=== PATIENT | female | born 1950 | race Caucasian/White ===

== ENCOUNTER 2016-12-20 17:50 | Inpatient (IN) | payer OTHER ==
[~2016-12-20] VITALS: Ht 168.9 cm; Wt 91.0 kg
[2016-12-20 18:22] LABS: EOSINOPHIL (%) 0.5 % (0-5); EOSINOPHIL COUNT 0.1 K/uL (0-0.3); HEMATOCRIT 41.4 % (36.0-46.0); IMMATURE GRANULOCYTE (%) 0.4 % (0.0-0.7); IMMATURE GRANULOCYTE COUNT 0.1 K/uL; INSTRUMENT ABS NEUTROPHIL CT 11.3 K/uL; LYMPHOCYTE COUNT 1.5 K/uL (1.0-2.8); MCH 26.8 PG (29.0-34.0); MCHC 33.1 G/DL (30.0-36.0); MEAN PLAT.VOLUME 11.1 uM^3 (9.5-12.4); MONOCYTE (%) 3.4 % (3-12); MONOCYTE COUNT 0.5 K/uL (0-0.8); NEUTROPHIL (%) 84.1 % (45-76); NEUTROPHIL COUNT 11.3 K/uL (1.8-6.4); PLATELET COUNT 245 K/uL (156-360); RBC DIS.WIDTH-CV 13.2 % (11.8-14.6); RBC DIS.WIDTH-SD 38.7 % (39-53); RED BLOOD COUNT 5.11 M/uL (3.80-5.20); WHITE BLOOD COUNT 13.5 K/uL (4.1-10.2)
[2016-12-20 18:31] LABS: AMYLASE 44 IU/L (1-118); CHLORIDE 104 mEq/L (99-109); POTASSIUM 3.2 mEq/L (3.7-5.4); SODIUM 139 mEq/L (136-147)
[2016-12-20 18:32] LABS: GLUCOSE 114 mg/dL (70-99)
[2016-12-20 18:33] LABS: INTER. NORMALIZED RATIO 1.1; PROTHROMBIN TIME 10.8 (9.2-11.2); PTT 29.1 (25-32)
[2016-12-20 18:34] LABS: ANION GAP 13 MEQ/L (2-14)
[2016-12-20 18:36] LABS: GFR ESTIMATE (CALCULATED) > 59 mL/min/; SERUM ETHYL ALCOHOL < 10 mg/dL
[2016-12-20 18:37] LABS: UREA NITROGEN (BUN) 12 mg/dL (9-23)
[2016-12-20 18:39] LABS: LIPASE 17 U/L (1.0-51.0)
[2016-12-20 18:43] LABS: TROP-I INTERPRETATION NEGATIVE; TROPONIN-I < 0.01 ng/mL (0.0-0.30)
[2016-12-20 19:46] LABS: ADD MIUA? NO; BILIRUBIN NEGATIVE; BLOOD NEGATIVE; COLOR COLORLESS ((YELLOW)); GLUCOSE (STRIP) NEGATIVE; KETONES 5; LEUKOCYTES NEGATIVE; NITRITE NEGATIVE; PROTEIN (STRIP) NEGATIVE; SPECIFIC GRAVITY 1.003 (1.000-1.030); UCUL ADDED? NO; UROBILINOGEN 0.2 MG/DL (0.2-1.0)
[2016-12-20 19:57] LABS: AMPHETAMINE NEGATIVE (500 ng/mL); BARBITURATES NEGATIVE (200 ng/mL); BENZODIAZEPINES NEGATIVE (150 ng/mL); COCAINE NEGATIVE (150 ng/mL); INTERNAL CONTROLS VALID? YES; METHADONE NEGATIVE (200 ng/mL); METHAMPHETAMINE NEGATIVE (500 ng/mL); OPIATES (MORPHINE) NEGATIVE (100 ng/mL); OXYCODONE NEGATIVE (100 ng/mL); PHENCYCLIDINE NEGATIVE (25 ng/mL); PROPOXYPHENE NEGATIVE (300 ng/mL); THC CANNABINOIDS NEGATIVE (50 ng/mL); TRICYCLIC ANTIDEPRESSANTS NEGATIVE (300 ng/mL)
[2016-12-20] MEDS ORDERED: CENTRUM SILVER1 EAC4 PO (21:30)
[2016-12-20] MEDS ORDERED: VITAMIN D31000 UNI2 PO (21:30)
[2016-12-20] MEDS ORDERED: BIOTIN1000 MCG PO (21:31)
[2016-12-20] MEDS ORDERED: TUMS500 MG PO (21:31)
[2016-12-21] VITALS (7 sets, daily range): BP systolic 134–174; BP diastolic 42–84
[2016-12-21 02:08] LABS: TROP-I INTERPRETATION NEGATIVE; TROPONIN-I 0.01 ng/mL (0.0-0.30)
[2016-12-21 06:16] LABS: FASTING STATUS NONFASTING
[2016-12-21 06:50] LABS: HDL CHOLESTEROL 29 MG/DL (Desirable>=50); LDL CHOLESTEROL 145 mg/dL (Desirable<100); NON-HDL CHOLESTEROL 181 mg/dL (Desirable<160); TOTAL CHOLESTEROL 210 mg/dL (Desirable<200); TRIGLYCERIDES 180 MG/DL (Normal: <150)
[2016-12-21 06:57] LABS: TROP-I INTERPRETATION NEGATIVE; TROPONIN-I 0.02 ng/mL (0.0-0.30)
[2016-12-21 08:32] LABS: Estimated Average Glucose 111 mg/dL (70-123); HEMOGLOBIN A1c (GLYCOHEMOGLOB) 5.5 % HGB (Below 5.7)
[2016-12-21 10:00] LABS: HEMATOCRIT 40.5 % (36.0-46.0); MCH 26.4 PG (29.0-34.0); MCHC 31.6 G/DL (30.0-36.0); MCV 83.5 FL (83-99); MEAN PLAT.VOLUME 11.7 uM^3 (9.5-12.4); PLATELET COUNT 218 K/uL (156-360); RBC DIS.WIDTH-CV 13.5 % (11.8-14.6); RBC DIS.WIDTH-SD 41.1 % (39-53); RED BLOOD COUNT 4.85 M/uL (3.80-5.20)
[2016-12-21 10:08] LABS: WHITE BLOOD COUNT 8.6 K/uL (4.1-10.2)
[2016-12-21 10:28] LABS: ANION GAP 11 MEQ/L (2-14); CHLORIDE 104 MEQ/L (99-109); GFR ESTIMATE (CALCULATED) > 59 mL/min/; GLUCOSE 125 mg/dL (70-99); POTASSIUM 4.5 MEQ/L (3.7-5.4); SAMPLE HEMOLYSIS CHECK 0; SAMPLE ICTERIC CHECK 0; SAMPLE LIPEMIA CHECK 0; SODIUM 141 MEQ/L (136-147); UREA NITROGEN (BUN) 9 mg/dL (9-23)
[2016-12-22] VITALS (7 sets, daily range): BP systolic 125–162; BP diastolic 59–68
[2016-12-22 06:08] LABS: HEMATOCRIT 38.4 % (36.0-46.0); MCH 26.5 PG (29.0-34.0); MCHC 31.5 G/DL (30.0-36.0); MEAN PLAT.VOLUME 11.3 uM^3 (9.5-12.4); PLATELET COUNT 203 K/uL (156-360); RBC DIS.WIDTH-CV 13.5 % (11.8-14.6); RBC DIS.WIDTH-SD 41.5 % (39-53); RED BLOOD COUNT 4.57 M/uL (3.80-5.20); WHITE BLOOD COUNT 7.5 K/uL (4.1-10.2)
[2016-12-22 06:29] LABS: ALKALINE PHOSPHATASE 57 IU/L (3-129); ANION GAP 10 MEQ/L (2-14); CHLORIDE 105 MEQ/L (99-109); GFR ESTIMATE (CALCULATED) > 59 mL/min/; GLUCOSE 94 mg/dL (70-99); POTASSIUM 4.3 MEQ/L (3.7-5.4); SAMPLE HEMOLYSIS CHECK 0; SAMPLE ICTERIC CHECK 0; SAMPLE LIPEMIA CHECK 0; SODIUM 142 MEQ/L (136-147); TOTAL BILIRUBIN 0.7 MG/DL (0.0-1.0); UREA NITROGEN (BUN) 16 mg/dL (9-23)
[2016-12-23 04:50] VITALS: BP 132/58
[2016-12-23 06:43] LABS: ANION GAP 9 MEQ/L (2-14); CHLORIDE 105 MEQ/L (99-109); GFR ESTIMATE (CALCULATED) > 59 mL/min/; GLUCOSE 110 mg/dL (70-99); POTASSIUM 3.8 MEQ/L (3.7-5.4); SAMPLE HEMOLYSIS CHECK 0; SAMPLE ICTERIC CHECK 0; SAMPLE LIPEMIA CHECK 0; SODIUM 139 MEQ/L (136-147); UREA NITROGEN (BUN) 15 mg/dL (9-23)
[2016-12-23 06:53] LABS: MCH 26.5 PG (29.0-34.0); MCHC 31.8 G/DL (30.0-36.0); MCV 83.5 FL (83-99); MEAN PLAT.VOLUME 11.3 uM^3 (9.5-12.4); PLATELET COUNT 218 K/uL (156-360); RBC DIS.WIDTH-CV 13.6 % (11.8-14.6); RBC DIS.WIDTH-SD 41.4 % (39-53); RED BLOOD COUNT 4.79 M/uL (3.80-5.20)
[2016-12-23 07:13] VITALS: BP 149/66
[2016-12-23] MEDS ORDERED: ASPIR-LOW81 MG PO (08:18)
[2016-12-23] MEDS ORDERED: SPIRONOLACTONE25 MG PO (08:18)
[2016-12-23] MEDS ORDERED: LISINOPRIL-HCT1 EACH PO (08:18)
[2016-12-23] MEDS ORDERED: PRAVASTATIN SOD40 MG PO (08:18)
[2016-12-27 08:30] LABS: MNPH Specimen Volume 1300 mL (())
== END 2016-12-23 09:37 | disposition home or self-care (01) | DRG 305 ==
LOC: EME 17:50 → 4EAST 12-21 01:07 → EDOF 12-21 01:07 → 4EAST 12-21 02:00
PROVIDERS: Emergency Medicine; Hospitalist; Internal Medicine; Nurse Practitioner Family
DX: I16.1 Hypertensive emergency (principal); I67.4 Hypertensive encephalopathy; G45.8 Other transient cerebral ischemic attacks and related syndromes; J98.11 Atelectasis; F05 Delirium due to known physiological condition; E87.6 Hypokalemia; R00.0 Tachycardia, unspecified; R94.31 Abnormal electrocardiogram [ECG] [EKG]; I51.7 Cardiomegaly; Z87.891 Personal history of nicotine dependence
CPT/HCPCS: 70450; 70496; 70498; 70551; 71010; 76770; 80048; 80053; 80061; 81003; 82088 90; 82150; 82533 91; 83036; 83690; 83835 90; 84244 90; 84443; 84484; 85025; 85027; 85610; 85730; 86850; 86900; 86901; 92610 GN; 93005; 93306; 93975; 99281; 99285; G0480; J1644

== ENCOUNTER → 2017-01-26 | Outpatient (CLI) | payer OTHER ==
[~2017-01-26] VITALS: Ht 170.2 cm; Wt 79.4 kg
[~2017-01-26] MED LIST: ASPIR-LOW81 MG PO; BIOTIN1000 MCG PO; CENTRUM SILVER1 EAC4 PO; LISINOPRIL-HCT1 EACH PO; PRAVASTATIN SOD40 MG PO; SPIRONOLACTONE25 MG PO; TUMS500 MG PO; VITAMIN D31000 UNI2 PO
== END | disposition home or self-care (01) ==
LOC: AMB 10:10
DX: K86.2 Cyst of pancreas (principal); K76.89 Other specified diseases of liver; I10 Essential (primary) hypertension; E78.5 Hyperlipidemia, unspecified; Z86.73 Personal history of transient ischemic attack (TIA), and cerebral infarction without residual deficits; Z87.891 Personal history of nicotine dependence; Z79.82 Long term (current) use of aspirin; Z88.1 Allergy status to other antibiotic agents
CPT/HCPCS: 82150 91; 88173; 88305; C1726; J0330; J2250; J2405; J3010